=== PATIENT | male | born 1945 | race Asian ===

== ENCOUNTER 2016-09-01 08:41 | Emergency (ER) | payer MEDICARE ==
[2016-09-01] MEDS ORDERED: IOPAMIDOL 300 (61%) 150 ML VIAL IV ONE (08:42)
[2016-09-01] MEDS ORDERED: SODIUM CHLORIDE 0.9% 1,000 ML ONE (09:15)
[2016-09-01 09:34] LABS: ABSOLUTE NEUTROPHIL COUNT 9.3 K/mm3 (1.8-7.7); BASO % 0.3 % (0.2-1.0); EOS # 0.1 (0.0-0.5); EOS % 0.9 % (0.9-2.9); HEMATOCRIT 35.4 % (32.0-52.0); HEMOGLOBIN 11.3 gm/l (14.0-18.0); IMM NEUT # 0.1 K/mm3 (0-0.2); IMM NEUT% 0.5 % (0-1); LYMPH # 1.5 (1.0-4.8); LYMPH % 13.1 % (15-45); MEAN CELL VOLUME 92.4 fl (80.0-94.0); MEAN CORPUSCULAR HEMOGLOBIN 29.5 pg (27.0-31.0); MEAN CORPUSCULAR HGB CONC 31.9 g/dl (33.0-37.0); MEAN PLATELET VOLUME 10.1 fl (7.4-10.4); MONO # 0.6 (0.0-0.8); MONO % 5.1 % (4-12); NEUT % 80.1 % (43-75); PLATELET COUNT 382 K/mm3 (130-400); RED CELL DISTRIBUTION WIDTH 13.8 % (11.5-14.5)
[2016-09-01 09:43] LABS: SPECIFIC GRAVITY 1.015 (1.001-1.030); URINE APPEARANCE CLOUDY; URINE BILIRUBIN NEGATIVE (NEGATIVE); URINE BLOOD 4+ (NEGATIVE); URINE COLOR RED; URINE GLUCOSE (UA) 1+ (NEGATIVE); URINE LEUKOCYTE ESTERASE NEGATIVE (NEGATIVE); URINE NITRITE NEGATIVE (NEGATIVE); URINE PROTEIN 3+ (NEGATIVE); URINE UROBILINOGEN NORMAL (0-1 mg/dl)
[2016-09-01 09:44] LABS: CALCIUM 9.5 mg/dL (8.6-10.3); URINE EPITHELIAL CELLS 0-1 /hpf; URINE RBC PACKED FIELD /hpf; URINE WBC 20-30 /hpf
[2016-09-01 09:47] LABS: URINE BACTERIA FEW
--- NOTE | 2016-09-01 11:51 | CT ---
Exam Type: ABD/PELVIS W/ CON Date and Time: 09/01/2016 11:04 AM Clinical information: Gross hematuria. Abdominal pain. Comparison: None Technique: Contiguous axial 4 mm images were obtained from the lung bases through the pelvis after the uneventful IV administration of 125 cc of [id number]. Sagittal and coronal reformations with high resolution lung algorithm images were also obtained at this time. DLP 1228.0 FINDINGS: Lung base : Bilateral, left greater than right effusions are present. Associated compressive airspace disease is identified though underlying pneumonia cannot be excluded. Visualized heart:There is no pericardial effusion. Multiple locules of air are present in the pericardial fat and possibly the right atrium. Findings likely relate to recent procedure. LIVER: Mild diffuse fatty infiltration. BILE DUCTS: normal caliber. GALLBLADDER: No calcified gallstones. Normal caliber wall. PANCREAS: within normal limits. SPLEEN: within normal limits. ADRENALS: within normal limits. KIDNEYS: within normal limits. Stomach and small BOWEL: Normal caliber. Large bowel: Air and stool are noted within the large bowel. Appendix is normal. Much of the distal large bowel is decompressed limiting assessment. LYMPH NODES: No enlarged mesenteric lymph nodes. PERITONEUM: no ascites or free air, no fluid collection. VESSELS: within normal limits RETROPERITONEUM: within normal limits. ABDOMINAL WALL: Fat-containing open inguinal ring are noted bilaterally. Bladder: Partially decompressed. Bladder wall is thicker than would be expected for this level decompression. Findings could relate to infectious, inflammatory or possibly malignant causes. BONES: Multilevel degenerative changes. No lytic or sclerotic lesions. Spine maintains anatomic alignment. IMPRESSION: Thickening of the bladder wall couldn't would be expected for this level of decompression. Findings could relate to infectious, inflammatory or possibly malignant causes. Given the loculated air within the epicardial fat and right atrium correlation with recent procedure would be recommended as trauma during catheter placement could also cause hematuria. Other incidental findings as above. Findings were called to Dr. Burk at approximately 1147 hours on 09/01/2016. He states the patient had recent cardiac surgery earlier this month.
== END 2016-09-01 12:30 | disposition home or self-care (01) ==
LOC: ED 08:41
DX: R31.0 Gross hematuria (principal); I25.10 Atherosclerotic heart disease of native coronary artery without angina pectoris; I10 Essential (primary) hypertension; N40.0 Benign prostatic hyperplasia without lower urinary tract symptoms; I48.91 Unspecified atrial fibrillation; E11.9 Type 2 diabetes mellitus without complications; Z95.1 Presence of aortocoronary bypass graft; Z79.84 Long term (current) use of oral hypoglycemic drugs; Z79.01 Long term (current) use of anticoagulants
CPT/HCPCS: 85025; 87086; 80048; 81001; 74177; 99284 ×2; 96360; 51798; J7030; Q9967